=== PATIENT | male | born 1995 | race Two or more races ===

== ENCOUNTER 2021-02-25 12:16 | Inpatient (IN) | payer MEDICAID ==
[~2021-02-25] VITALS: Ht 180.3 cm; Wt 114.3 kg
[2021-02-25] MEDS ORDERED: cloNIDine HCL 0.1 MG TAB ONE (12:39)
[2021-02-25] MEDS ORDERED: cloNIDine HCL 0.1 MG TAB PO ONE (13:00)
[2021-02-25 13:19] LABS: Basophils # (auto) 0.1 10 ^3/uL (0-0.2); Basophils % (auto) 0.7 % (0.0-2.0); Eosinophils # (auto) 0.1 10 ^3/uL (0-0.8); Eosinophils % (auto) 1.3 % (0.0-7.0); Hematocrit 49.6 % (41.0-53.0); Hemoglobin 17.2 g/dL (13.5-17.5); Lymphocytes # (auto) 1.9 10 ^3/uL (0.4-5.4); Lymphocytes % (auto) 18.3 % (10.0-50.0); Mean Corpuscular Hemoglobin 29.3 pg (28.0-32.0); Mean Corpuscular Hgb Conc. 34.8 g/dL (32.0-36.0); Mean Corpuscular Volume 84.2 fL (80.0-100.0); Monocytes # (auto) 0.8 10 ^3/uL (0-1.3); Monocytes % (auto) 7.5 % (0.0-12.0); Neutrophils # (auto) 7.6 10 ^3/uL (1.6-8.6); Neutrophils % (auto) 72.2 % (37.0-80.0); Nucleated Red Blood Cells % 0.1 %; Red Blood Cells 5.89 10^6/uL (4.5-5.90); Red Cell Distribution Width 13.7 % (11.8-14.3); White Blood Cell 10.6 10^3/uL (4.4-10.8)
[2021-02-25 13:38] LABS: Albumin 3.5 g/dL (3.4-5.0); Calcium 8.7 mg/dL (8.5-10.1); Magnesium 2.9 mg/dL (1.6-2.6); Potassium 3.7 mmol/L (3.5-5.1)
[2021-02-25 13:48] LABS: BUN/Creatinine Ratio 13.3; Bilirubin, Total 0.4 mg/dL (0.2-1.0)
[2021-02-25] MEDS ORDERED: amLODIPine BESYLATE 5 MG TAB PO ONE (18:45)
[2021-02-25] MEDS ORDERED: MORPHINE SULFATE INJECTION 2 MG/ML SYRG IV PRN (21:30)
[2021-02-25] MEDS ORDERED: NITROGLYCERIN 0.4 MG SL TAB SL PRN (21:30)
[2021-02-25] MEDS ORDERED: cloNIDine HCL 0.1 MG TAB PO PRN (21:30)
[2021-02-25] MEDS ORDERED: TEMAZEPAM 15 MG CAP PO PRN (21:30)
[2021-02-25] MEDS ORDERED: ACETAMINOPHEN 325 MG TAB PO PRN (21:30)
[2021-02-25] MEDS ORDERED: hydrALAZINE HCL 20 MG/ML VL IV ONE (21:30)
[2021-02-25] MEDS ORDERED: ONDANSETRON HCL 4 MG/2 ML VIAL IV PRN (21:30)
[2021-02-25 23:27] LABS: Cholesterol 208 mg/dL (< 200); Triglycerides 332 mg/dL (< 150)
[2021-02-25 23:30] LABS: HDL Cholesterol 34 mg/dL (40-59); LDL Cholesterol 121 mg/dL (< 100)
[2021-02-26 04:50] VITALS: BP 132/84
[2021-02-26 05:00] VITALS: BP 132/84
[2021-02-26] MEDS ORDERED: INFLUENZA QUAD 2021-2022 0.5 ML SYRG IM ONE (05:00)
[2021-02-26 09:00] VITALS: BP 123/62
[2021-02-26 09:07] LABS: Urine Bacteria NONE SEEN /hpf (None Seen); Urine Blood Negative /uL (Negative); Urine Hyaline Cast FEW /lpf (0 - 2); Urine Mucus FEW (None Seen); Urine WBC 2 /hpf (0 - 3)
[2021-02-26 09:15] LABS: Alcohol, Urine < 3.0 mg/dL (0-10); Amphetamine Screen, Urine NEGATIVE (NEGATIVE); Barbiturate Scree,Urine NEGATIVE (NEGATIVE); Benzodiazephine Screen, Urine NEGATIVE (NEGATIVE); Cannabinoid Screen, Urine NEGATIVE (NEGATIVE); Cocaine Screen, Urine NEGATIVE (NEGATIVE); Opiate Scree,Urine NEGATIVE (NEGATIVE); Phencyclidine Screen, Urine NEGATIVE (NEGATIVE)
[2021-02-26 09:41] LABS: Basophils # (auto) 0.1 10 ^3/uL (0-0.2); Basophils % (auto) 0.5 % (0.0-2.0); Eosinophils # (auto) 0.1 10 ^3/uL (0-0.8); Eosinophils % (auto) 1.2 % (0.0-7.0); Hematocrit 45.7 % (41.0-53.0); Hemoglobin 15.6 g/dL (13.5-17.5); Lymphocytes # (auto) 2.1 10 ^3/uL (0.4-5.4); Lymphocytes % (auto) 20.5 % (10.0-50.0); Mean Corpuscular Hemoglobin 28.6 pg (28.0-32.0); Mean Corpuscular Volume 84.1 fL (80.0-100.0); Monocytes # (auto) 0.7 10 ^3/uL (0-1.3); Monocytes % (auto) 7.2 % (0.0-12.0); Neutrophils # (auto) 7.1 10 ^3/uL (1.6-8.6); Neutrophils % (auto) 70.6 % (37.0-80.0); Nucleated Red Blood Cells % 0.2 %; Red Blood Cells 5.43 10^6/uL (4.5-5.90); Red Cell Distribution Width 13.9 % (11.8-14.3); White Blood Cell 10.1 10^3/uL (4.4-10.8)
[2021-02-26] MEDS: PANTOPRAZOLE 40 MG TAB PO SCH (09:47)
[2021-02-26] MEDS: LISINOPRIL 10 MG TAB PO SCH (09:48)
[2021-02-26 10:12] LABS: Albumin 3.1 g/dL (3.4-5.0); Calcium 8.5 mg/dL (8.5-10.1); Potassium 3.8 mmol/L (3.5-5.1)
[2021-02-26 10:17] LABS: BUN/Creatinine Ratio 14.6; Bilirubin, Total 0.6 mg/dL (0.2-1.0); Total Protein 6.4 g/dL (6.4-8.2)
[2021-02-26 13:00] VITALS: BP 134/82
[2021-02-26 17:00] VITALS: BP 132/79
[2021-02-26 21:56] VITALS: BP 122/81
[2021-02-26] MEDS ORDERED: ATORVASTATIN 20 MG TAB PO SCH (22:00)
[2021-02-27 05:43] VITALS: BP_SYST 119; BP_SYST 145; BP_DIAS 62; BP_DIAS 78
[2021-02-27] MEDS: PANTOPRAZOLE 40 MG TAB PO SCH (08:20)
[2021-02-27] MEDS: LISINOPRIL 10 MG TAB PO SCH (08:21)
[2021-02-27 09:00] VITALS: BP 137/82
[2021-02-27 12:32] LABS: BUN/Creatinine Ratio 13.5; Calcium 8.5 mg/dL (8.5-10.1); Potassium 4.5 mmol/L (3.5-5.1)
[2021-02-27 13:00] VITALS: BP 145/92
[2021-02-27 15:56] VITALS: BP 137/82
== END 2021-02-27 17:00 | disposition home or self-care (01) | DRG 199 ==
LOC: ER 12:17 → TELE 21:19 → TELE-CENTR 02-26 04:18
PROVIDERS: ADMIT Nurse Practitioner; ATTEND Internal Medicine
DX: I16.0 Hypertensive urgency (principal); N17.9 Acute kidney failure, unspecified; E66.01 Morbid (severe) obesity due to excess calories; I12.9 Hypertensive chronic kidney disease with stage 1 through stage 4 chronic kidney disease, or unspecified chronic kidney disease; Z68.34 Body mass index [BMI] 34.0-34.9, adult; R80.9 Proteinuria, unspecified; Z20.822 Contact with and (suspected) exposure to COVID-19; N18.9 Chronic kidney disease, unspecified; E78.5 Hyperlipidemia, unspecified; J45.909 Unspecified asthma, uncomplicated; R00.2 Palpitations; Z82.5 Family history of asthma and other chronic lower respiratory diseases; Z83.3 Family history of diabetes mellitus; Z71.3 Dietary counseling and surveillance
CPT/HCPCS: 36415; 71045; 80048; 80053; 80061; 80307; 81001; 82533; 83036; 83735; 84443; 84484; 85025; 87426; 93005; 93306; 93975; 96374; G0378